=== PATIENT | male | born 1935 | race Caucasian/White ===

== ENCOUNTER 2018-02-04 12:48 | Inpatient (IN) ==
[2018-02-04 18:11] LABS: Apearance,Urine CLEAR (Clear); Bilirubin,Urine Negative (Negative); Blood, Urine Negative (Negative); Glucose,Urine (UA) Negative (Negative); Ketones,Urine Negative (Negative); Nitrite,Urine Negative (Negative); Protein,Urine Negative; RBC,Urine <1 /HPF (0-4); Squamous Epithelial Cell,Urine Occasional /HPF (0-10); Urine Color Yellow (Yellow); Urine Specific Gravity 1.011 (1.001-1.035); Urine Urobilinogen < 2.0 EU/DL (0.2-1.0); WBC,Urine <1 /HPF (0-6)
[2018-02-04 19:20] LABS: Hematocrit 28.5 VOL% (42.0-52.0); Hemoglobin 8.9 GM/DL (14.0-18.0)
[2018-02-05 04:03] LABS: Basophils % 0.8 % (0.0-0.8); Eosinophils # 0.1 10*3/uL (0.0-0.87); Eosinophils % 1.7 % (0.00-10.9); Hematocrit 25.6 VOL% (42.0-52.0); Hemoglobin 7.9 GM/DL (14.0-18.0); Immature Granulocytes % 0.4 %; Immature Granulocytes Absolute 0.02 #; Lymphocytes # 0.8 10*3/uL (1.4-4.0); Lymphocytes % 16.1 % (21.2-54.2); Mean Corpuscular HGB Conc 30.9 GM/DL (32-36); Mean Corpuscular Hemoglobin 26 PG (27-34); Mean Corpuscular Volume 84.2 FL (87-102); Monocytes # 0.6 10*3/uL (0.11-0.8); Monocytes % 11.7 % (1.7-12.7); Neutrophils # 3.6 10*3/uL (1.4-7.4); Neutrophils % 69.3 % (38.7-73.9); Platelet Count 149 T/CUMM (130-400); Red Blood Count 3.04 MC/CUMM (3.8-5.5); Red Cell Distribution Width 15.6 % (9.3-17.3); White Blood Count 5.2 T/CUMM (4-12)
[2018-02-05 04:33] LABS: Albumin 3.1 G/DL (3.4-5.0); Bilirubin,Total 0.7 MG/DL (0.2-1.0); Calcium 8.3 MG/DL (8.5-10.1); Osmolality,Calculated 292.8 MOS/KG (273-304); Potassium 4.2 MMOL/L (3.5-5.1); Total Protein 5.6 G/DL (6.4-8.3)
[2018-02-06 05:33] LABS: Basophils % 0.3 % (0.0-0.8); Eosinophils % 0.3 % (0.00-10.9); Hemoglobin 10.6 GM/DL (14.0-18.0); Immature Granulocytes % 0.5 %; Immature Granulocytes Absolute 0.06 #; Lymphocytes # 0.6 10*3/uL (1.4-4.0); Lymphocytes % 5.5 % (21.2-54.2); Mean Corpuscular HGB Conc 31.2 GM/DL (32-36); Mean Corpuscular Hemoglobin 26 PG (27-34); Mean Corpuscular Volume 84.6 FL (87-102); Mean Platelet Volume 11.9 FL (9.6-12.0); Monocytes # 0.6 10*3/uL (0.11-0.8); Monocytes % 5.5 % (1.7-12.7); Neutrophils # 10.2 10*3/uL (1.4-7.4); Neutrophils % 87.9 % (38.7-73.9); Platelet Count 155 T/CUMM (130-400); Red Cell Distribution Width 15.8 % (9.3-17.3); White Blood Count 11.6 T/CUMM (4-12)
[2018-02-06 05:42] LABS: Red Blood Count 4.02 MC/CUMM (3.8-5.5)
[2018-02-07 11:21] LABS: Basophils % 0.4 % (0.0-0.8); Eosinophils # 0.1 10*3/uL (0.0-0.87); Eosinophils % 0.9 % (0.00-10.9); Hematocrit 32.5 VOL% (42.0-52.0); Immature Granulocytes % 0.6 %; Immature Granulocytes Absolute 0.05 #; Lymphocytes # 0.7 10*3/uL (1.4-4.0); Lymphocytes % 9.3 % (21.2-54.2); Mean Corpuscular HGB Conc 30.8 GM/DL (32-36); Mean Corpuscular Hemoglobin 26 PG (27-34); Mean Corpuscular Volume 85.5 FL (87-102); Mean Platelet Volume 11.5 FL (9.6-12.0); Monocytes # 0.7 10*3/uL (0.11-0.8); Monocytes % 9.1 % (1.7-12.7); Neutrophils # 6.3 10*3/uL (1.4-7.4); Neutrophils % 79.7 % (38.7-73.9); Platelet Count 149 T/CUMM (130-400); Red Cell Distribution Width 15.9 % (9.3-17.3); White Blood Count 7.9 T/CUMM (4-12)
[2018-02-07 12:15] LABS: Albumin 3.1 G/DL (3.4-5.0); Bilirubin,Total 1.5 MG/DL (0.2-1.0); Calcium 8.6 MG/DL (8.5-10.1); Osmolality,Calculated 285.1 MOS/KG (273-304); Potassium 3.7 MMOL/L (3.5-5.1)
[2018-02-08 05:32] LABS: Basophils # 0.1 10*3/uL (0.0-0.2); Basophils % 0.7 % (0.0-0.8); Eosinophils # 0.1 10*3/uL (0.0-0.87); Eosinophils % 1.9 % (0.00-10.9); Hematocrit 33.8 VOL% (42.0-52.0); Immature Granulocytes % 0.4 %; Immature Granulocytes Absolute 0.03 #; Lymphocytes # 0.6 10*3/uL (1.4-4.0); Lymphocytes % 8.7 % (21.2-54.2); Mean Corpuscular HGB Conc 32.5 GM/DL (32-36); Mean Corpuscular Hemoglobin 27 PG (27-34); Mean Platelet Volume 11.9 FL (9.6-12.0); Monocytes # 0.8 10*3/uL (0.11-0.8); Monocytes % 10.9 % (1.7-12.7); Neutrophils # 5.6 10*3/uL (1.4-7.4); Neutrophils % 77.4 % (38.7-73.9); Platelet Count 175 T/CUMM (130-400); Red Blood Count 4.12 MC/CUMM (3.8-5.5); Red Cell Distribution Width 15.6 % (9.3-17.3); White Blood Count 7.3 T/CUMM (4-12)
[2018-02-08 05:36] LABS: INR 1.1; PT Patient Result 11.7 SECS
[2018-02-08 06:33] LABS: Calcium 9.1 MG/DL (8.5-10.1); Potassium 3.7 MMOL/L (3.5-5.1)
[2018-02-08 13:54] VITALS: BP 130/75
== END 2018-02-08 15:45 | disposition home or self-care (01) | DRG 378 ==
LOC: INTOOBSV 13:01 → N.2E 13:01
PROVIDERS: ADMIT Family Medicine; ATTEND Family Medicine

== ENCOUNTER 2019-08-05 10:00 | Inpatient (IN) ==
[2019-08-05] MEDS ORDERED: PANTOPRAZOLE 40 MG VIAL IV STA (10:31)
[2019-08-05 10:40] LABS: Basophils # 0.1 10*3/uL (0.0-0.2); Basophils % 0.9 % (0.0-0.8); Eosinophils # 0.1 10*3/uL (0.0-0.87); Eosinophils % 2.2 % (0.00-10.9); Hematocrit 25.5 VOL% (42.0-52.0); Hemoglobin 7.6 GM/DL (14.0-18.0); Immature Granulocytes % 0.3 %; Immature Granulocytes Absolute 0.02 #; Lymphocytes # 0.7 10*3/uL (1.4-4.0); Lymphocytes % 11.4 % (21.2-54.2); Mean Corpuscular HGB Conc 29.8 GM/DL (32-36); Mean Corpuscular Volume 81.5 FL (87-102); Mean Platelet Volume 10.8 FL (9.6-12.0); Monocytes % 9.2 % (1.7-12.7); Platelet Count 234 T/CUMM (130-400); Red Blood Count 3.13 MC/CUMM (3.8-5.5); Red Cell Distribution Width 14.9 % (9.3-17.3); White Blood Count 6.5 T/CUMM (4-12)
[2019-08-05 10:50] LABS: INR 1.3; PT Patient Result 14.4 SECS (9.6-12.2); Partial Thromboplastin Time 25.4 SECS (20.8-36.0)
[2019-08-05 11:03] LABS: Albumin 3.8 G/DL (3.4-5.0); Bilirubin,Total 1.5 MG/DL (0.2-1.0); Calcium 8.7 MG/DL (8.5-10.1)
[2019-08-05] MEDS ORDERED: LEVOFLOXACIN INJ 500 MG in PREMIX 1 EACH IV STA (11:29)
[2019-08-05] MEDS ORDERED: SODIUM CHLORIDE 0.9% 1,000 ML IV PRN (11:47)
[2019-08-05] MEDS ORDERED: ALBUTEROL 2.5 MG/3 ML NEB RESP TX PRN (11:50)
[2019-08-05] MEDS ORDERED: DEXTROSE 10% 250 ML BAG IV PRN (11:53)
[2019-08-05] MEDS ORDERED: GLUCAGON 1 MG VIAL IM PRN (11:53)
[2019-08-05] MEDS ORDERED: MORPHINE 4 MG/1 ML VIAL IV PRN (11:54)
[2019-08-05] MEDS ORDERED: ONDANSETRON 4 MG/2 ML VIAL IV PRN (11:54)
[2019-08-05] MEDS ORDERED: amLODIPine 5 MG TABLET PO PRN (11:56)
[2019-08-05] MEDS ORDERED: FUROSEMIDE 20 MG/2 ML VIAL IV ONE (12:00)
[2019-08-05] MEDS ORDERED: diphenhydrAMINE CAP 25 MG CAPSULE PO ONE (12:00)
[2019-08-05] MEDS ORDERED: ACETAMINOPHEN 325 MG TABLET PO ONE (12:00)
[2019-08-05 13:14] LABS: % Iron Saturation 11.1 % (18-50)
[2019-08-05] MEDS: ALBUTEROL/IPRATROPIUM 3 ML NEB RESP TX SCH ×2 (14:36→19:00)
[2019-08-05] MEDS: carvediloL 12.5 MG TABLET PO SCH (17:09)
[2019-08-05] MEDS: BENZONATATE 100 MG CAPSULE PO SCH ×2 (17:09→20:46)
[2019-08-05] MEDS: INSULIN REGULAR 100 UNIT/ML SUBCUT SCH ×2 (17:29→20:46)
[2019-08-05 17:42] LABS: Apearance,Urine CLEAR (Clear); Bilirubin,Urine Negative (Negative); Blood, Urine Negative (Negative); Glucose,Urine (UA) Negative (Negative); Hyaline Casts,Urine 3 /LPF (0-3); Ketones,Urine Negative (Negative); Mucus,Urine Occasional /LPF (Occasional); Nitrite,Urine Negative (Negative); Protein,Urine Negative; Squamous Epithelial Cell,Urine Occasional /HPF (0-10); Urine Color Straw (Yellow); Urine Specific Gravity 1.006 (1.001-1.035); Urine Urobilinogen < 2.0 EU/DL (0.2-1.0)
[2019-08-05] MEDS: SIMVASTATIN 20 MG TABLET PO SCH (20:46)
[2019-08-05] MEDS: MAGNESIUM OXIDE 400 MG TABLET PO SCH (20:46)
[2019-08-05] MEDS: GABAPENTIN 300 MG CAPSULE PO SCH (20:46)
[2019-08-06] MEDS: ALBUTEROL/IPRATROPIUM 3 ML NEB RESP TX SCH ×4 (00:58→19:06)
[2019-08-06 05:44] LABS: Basophils # 0.1 10*3/uL (0.0-0.2); Basophils % 0.7 % (0.0-0.8); Eosinophils # 0.1 10*3/uL (0.0-0.87); Eosinophils % 1.8 % (0.00-10.9); Hematocrit 30.8 VOL% (42.0-52.0); Immature Granulocytes % 0.4 %; Immature Granulocytes Absolute 0.03 #; Lymphocytes # 0.8 10*3/uL (1.4-4.0); Lymphocytes % 11.6 % (21.2-54.2); Mean Corpuscular HGB Conc 31.5 GM/DL (32-36); Mean Corpuscular Volume 81.3 FL (87-102); Mean Platelet Volume 10.9 FL (9.6-12.0); Monocytes % 9.8 % (1.7-12.7); Neutrophils % 75.7 % (38.7-73.9); Platelet Count 197 T/CUMM (130-400); Red Blood Count 3.79 MC/CUMM (3.8-5.5); Red Cell Distribution Width 15.2 % (9.3-17.3); White Blood Count 7.1 T/CUMM (4-12)
[2019-08-06 05:46] LABS: Hemoglobin 9.7 GM/DL (14.0-18.0)
[2019-08-06 05:55] LABS: Albumin 3.6 G/DL (3.4-5.0); Bilirubin,Total 2.5 MG/DL (0.2-1.0); Calcium 8.7 MG/DL (8.5-10.1); Osmolality,Calculated 284.3 MOS/KG (273-304); Total Protein 6.6 G/DL (6.4-8.3)
[2019-08-06 06:01] LABS: Risk Ratio 3.12; Thyroid Stimulating Hormone 3.94 uIU/ml (0.358-3.74); VLDL CHOLESTEROL 12.2 MG/DL
[2019-08-06] MEDS: INSULIN REGULAR 100 UNIT/ML SUBCUT SCH ×4 (07:56→21:09)
[2019-08-06] MEDS: POTASSIUM CHLORIDE 10 MEQ TABLET PO SCH (08:34)
[2019-08-06] MEDS: MAGNESIUM OXIDE 400 MG TABLET PO SCH ×2 (08:34→21:09)
[2019-08-06] MEDS: amLODIPine 10 MG TABLET PO SCH (08:34)
[2019-08-06] MEDS: BENZONATATE 100 MG CAPSULE PO SCH ×3 (08:34→21:09)
[2019-08-06] MEDS: carvediloL 12.5 MG TABLET PO SCH ×2 (08:35→16:48)
[2019-08-06] MEDS: cefTRIAXone 1,000 MG in SYRINGE 1 EACH IV SCH (08:35)
[2019-08-06] MEDS: FUROSEMIDE 20 MG TABLET PO SCH (08:35)
[2019-08-06] MEDS: GABAPENTIN 300 MG CAPSULE PO SCH ×2 (08:35→21:09)
[2019-08-06] MEDS: PANTOPRAZOLE 40 MG TABLET PO SCH (08:35)
[2019-08-06] MEDS: AZITHROMYCIN INJ 500 MG in SODIUM CHLORIDE 0.9% 250 ML IV SCH (08:39)
[2019-08-06] MEDS: SIMVASTATIN 20 MG TABLET PO SCH (21:10)
[2019-08-07] MEDS: ALBUTEROL/IPRATROPIUM 3 ML NEB RESP TX SCH ×2 (00:35→07:10)
[2019-08-07 05:58] LABS: Basophils # 0.1 10*3/uL (0.0-0.2); Basophils % 1.2 % (0.0-0.8); Eosinophils # 0.2 10*3/uL (0.0-0.87); Eosinophils % 2.8 % (0.00-10.9); Hematocrit 32.7 VOL% (42.0-52.0); Hemoglobin 10.1 GM/DL (14.0-18.0); Immature Granulocytes % 0.7 %; Immature Granulocytes Absolute 0.04 #; Lymphocytes # 0.8 10*3/uL (1.4-4.0); Lymphocytes % 13.9 % (21.2-54.2); Mean Corpuscular HGB Conc 30.9 GM/DL (32-36); Mean Corpuscular Volume 82.2 FL (87-102); Mean Platelet Volume 10.8 FL (9.6-12.0); Monocytes % 11.2 % (1.7-12.7); Neutrophils % 70.2 % (38.7-73.9); Platelet Count 212 T/CUMM (130-400); Red Blood Count 3.98 MC/CUMM (3.8-5.5); Red Cell Distribution Width 15.4 % (9.3-17.3); White Blood Count 6.1 T/CUMM (4-12)
[2019-08-07 06:33] LABS: Albumin 3.7 G/DL (3.4-5.0); Bilirubin,Total 1.9 MG/DL (0.2-1.0); Calcium 8.8 MG/DL (8.5-10.1); Osmolality,Calculated 292.6 MOS/KG (273-304); Total Protein 6.7 G/DL (6.4-8.3)
[2019-08-07] MEDS: INSULIN REGULAR 100 UNIT/ML SUBCUT SCH ×2 (07:47→12:36)
[2019-08-07] MEDS: POTASSIUM CHLORIDE 10 MEQ TABLET PO SCH (08:30)
[2019-08-07] MEDS: BENZONATATE 100 MG CAPSULE PO SCH (08:31)
[2019-08-07] MEDS: carvediloL 12.5 MG TABLET PO SCH (08:31)
[2019-08-07] MEDS: GABAPENTIN 300 MG CAPSULE PO SCH (08:31)
[2019-08-07] MEDS: amLODIPine 10 MG TABLET PO SCH (08:31)
[2019-08-07] MEDS: cefTRIAXone 1,000 MG in SYRINGE 1 EACH IV SCH (08:31)
[2019-08-07] MEDS: FUROSEMIDE 20 MG TABLET PO SCH (08:31)
[2019-08-07] MEDS: MAGNESIUM OXIDE 400 MG TABLET PO SCH (08:31)
[2019-08-07] MEDS: PANTOPRAZOLE 40 MG TABLET PO SCH (08:31)
[2019-08-07] MEDS: AZITHROMYCIN INJ 500 MG in SODIUM CHLORIDE 0.9% 250 ML IV SCH (08:37)
[2019-08-07 12:28] VITALS: BP 114/49
== END 2019-08-07 15:21 | disposition home or self-care (01) | DRG 813 ==
LOC: N.ED 10:00 → N.EDINP 11:54 → N.2E 12:10
PROVIDERS: ADMIT Internal Medicine Cardiovascular Disease; ATTEND Internal Medicine Cardiovascular Disease

== ENCOUNTER 2019-11-21 11:07 | Inpatient (IN) ==
[2019-11-21] MEDS ORDERED: ONDANSETRON 4 MG/2 ML VIAL IV STA (12:13)
[2019-11-21] MEDS ORDERED: HYDROmorphone 2 MG/1 ML VIAL IV STA ×3 (12:13→14:00)
[2019-11-21 12:33] LABS: Basophils # 0.1 10*3/uL (0.0-0.2); Basophils % 0.8 % (0.0-0.8); Eosinophils # 0.1 10*3/uL (0.0-0.87); Eosinophils % 1.6 % (0.00-10.9); Hematocrit 39.1 VOL% (42.0-52.0); Immature Granulocytes % 0.5 %; Immature Granulocytes Absolute 0.04 #; Lymphocytes # 0.8 10*3/uL (1.4-4.0); Lymphocytes % 11.2 % (21.2-54.2); Mean Corpuscular HGB Conc 30.7 GM/DL (32-36); Mean Corpuscular Volume 88.1 FL (87-102); Mean Platelet Volume 10.2 FL (9.6-12.0); Monocytes % 12.3 % (1.7-12.7); Neutrophils % 73.6 % (38.7-73.9); Platelet Count 230 T/CUMM (130-400); Red Blood Count 4.44 MC/CUMM (3.8-5.5); White Blood Count 7.3 T/CUMM (4-12)
[2019-11-21 12:53] LABS: Albumin 3.8 G/DL (3.4-5.0); Bilirubin,Total 0.9 MG/DL (0.2-1.0); Calcium 9.5 MG/DL (8.5-10.1); Osmolality,Calculated 282.5 MOS/KG (273-304); Total Protein 7.6 G/DL (6.4-8.3)
[2019-11-21 13:03] LABS: INR 1.2; PT Patient Result 12.4 SECS (9.8-11.9); Partial Thromboplastin Time 25.7 SECS (23.9-33.8)
[2019-11-21] MEDS ORDERED: hydrALAZINE 20 MG/1 ML VIAL IV PRN (13:06)
[2019-11-21] MEDS ORDERED: DOCUSATE SODIUM 100 MG CAPSULE PO PRN (13:06)
[2019-11-21] MEDS ORDERED: GLUCAGON 1 MG VIAL IM PRN (13:06)
[2019-11-21] MEDS ORDERED: DEXTROSE 50% 25 GM/50 ML VIAL IV PRN (13:06)
[2019-11-21] MEDS ORDERED: ACETAMINOPHEN 325 MG TABLET PO PRN (13:06)
[2019-11-21] MEDS ORDERED: ONDANSETRON 4 MG/2 ML VIAL IV PRN (13:06)
[2019-11-21] MEDS ORDERED: HYDROmorphone 2 MG/1 ML VIAL IV PRN (13:11)
[2019-11-21 13:41] LABS: Risk Ratio 2.5; Thyroid Stimulating Hormone 4.32 uIU/ml (0.358-3.74); VLDL CHOLESTEROL 18.2 MG/DL
[2019-11-21] MEDS ORDERED: MORPHINE 4 MG/1 ML VIAL IV PRN (14:17)
[2019-11-21] MEDS: INSULIN LISPRO 100 UNIT/ML SUBCUT SCH (16:08)
[2019-11-21] MEDS: LACTATED RINGERS 1,000 ML IV SCH (16:26)
[2019-11-21] MEDS ORDERED: ASPIRIN EC 81 MG TABLET PO SCH (21:00)
[2019-11-21] MEDS ORDERED: NABUMETONE 500 MG TABLET PO SCH (21:00)
[2019-11-21] MEDS: MORPHINE 4 MG/1 ML VIAL IV PRN (21:04)
[2019-11-21] MEDS: SERTRALINE 25 MG TABLET PO SCH (21:55)
[2019-11-21] MEDS: GABAPENTIN 300 MG CAPSULE PO SCH (21:55)
[2019-11-21] MEDS: carvediloL 12.5 MG TABLET PO SCH (21:55)
[2019-11-21] MEDS: LOSARTAN 25 MG TABLET PO SCH (21:56)
[2019-11-21 22:43] LABS: Apearance,Urine CLEAR (Clear); Bilirubin,Urine Negative (Negative); Blood, Urine Negative (Negative); Glucose,Urine (UA) 150 mg/dL (Negative); Hyaline Casts,Urine 5 /LPF (0-3); Ketones,Urine Negative (Negative); Mucus,Urine Occasional /LPF (Occasional); Nitrite,Urine Negative (Negative); Protein,Urine Negative; RBC,Urine 2 /HPF (0-4); Urine Color Yellow (Yellow); Urine Specific Gravity 1.012 (1.001-1.035); Urine Urobilinogen < 2.0 EU/DL (0.2-1.0); WBC,Urine 1 /HPF (0-6)
[2019-11-22] MEDS: INSULIN LISPRO 100 UNIT/ML SUBCUT SCH ×5 (00:59→21:20)
[2019-11-22] MEDS: SIMVASTATIN 20 MG TABLET PO SCH ×2 (01:00→21:07)
[2019-11-22] MEDS: LACTATED RINGERS 1,000 ML IV SCH ×3 (02:58→16:31)
[2019-11-22] MEDS: MORPHINE 4 MG/1 ML VIAL IV PRN (05:20)
[2019-11-22 05:52] LABS: Basophils % 0.7 % (0.0-0.8); Eosinophils # 0.1 10*3/uL (0.0-0.87); Eosinophils % 1.8 % (0.00-10.9); Hematocrit 33.6 VOL% (42.0-52.0); Hemoglobin 10.5 GM/DL (14.0-18.0); Immature Granulocytes % 0.3 %; Immature Granulocytes Absolute 0.02 #; Lymphocytes # 0.9 10*3/uL (1.4-4.0); Lymphocytes % 14.9 % (21.2-54.2); Mean Corpuscular HGB Conc 31.3 GM/DL (32-36); Mean Corpuscular Volume 86.8 FL (87-102); Mean Platelet Volume 10.4 FL (9.6-12.0); Monocytes % 14.1 % (1.7-12.7); Neutrophils % 68.2 % (38.7-73.9); Platelet Count 180 T/CUMM (130-400); Red Blood Count 3.87 MC/CUMM (3.8-5.5); Red Cell Distribution Width 16.7 % (9.3-17.3)
[2019-11-22] MEDS ORDERED: VANCOMYCIN INJ 1,000 MG in SODIUM CHLORIDE 0.9% 250 ML IV ONE (06:00)
[2019-11-22] MEDS ORDERED: ceFAZolin 1,000 MG in SYRINGE 1 EACH IV ONE (06:00)
[2019-11-22 06:07] LABS: Calcium 9.3 MG/DL (8.5-10.1); Osmolality,Calculated 275.8 MOS/KG (273-304)
[2019-11-22] MEDS ORDERED: TRANEXAMIC ACID 1,000 MG/10 ML VIAL ONE (07:56)
[2019-11-22] MEDS ORDERED: BACITRACIN OINT 0.9 GM PACK TOP ONE (07:56)
[2019-11-22] MEDS ORDERED: propofoL 200 MG/20 ML VIAL IV ONE (09:18)
[2019-11-22] MEDS ORDERED: ROPIVACAINE 0.5% 30 ML VIAL ONE (09:18)
[2019-11-22] MEDS ORDERED: DEXMEDETOMIDINE 200 MCG/2 ML VIAL ONE (09:19)
[2019-11-22] MEDS ORDERED: ePHEDrine 50 MG/ML AMP ONE (09:19)
[2019-11-22] MEDS ORDERED: GLYCOPYRROLATE 0.4 MG/2 ML VIAL ONE (09:19)
[2019-11-22] MEDS ORDERED: LACTATED RINGERS 1,000 ML IV ONE (09:19)
[2019-11-22] MEDS ORDERED: ROCURONIUM 100 MG/10 ML VIAL IV ONE (09:19)
[2019-11-22] MEDS ORDERED: NEOSTIGMINE 10 MG/10 ML VIAL ONE (09:19)
[2019-11-22] MEDS ORDERED: SEVOFLURANE 1 UNIT/15 MINUTE INH ONE (09:19)
[2019-11-22] MEDS ORDERED: ETOMIDATE 40 MG/20 ML VIAL IV ONE (09:19)
[2019-11-22] MEDS ORDERED: ONDANSETRON 4 MG/2 ML VIAL ONE (09:19)
[2019-11-22] MEDS ORDERED: fentaNYL 100 MCG/2 ML VIAL ONE (09:19)
[2019-11-22 09:28] LABS: Apearance,Urine Slightly Hazy (Clear); Bacteria,Urine Occasional /HPF (Few); Bilirubin,Urine Negative (Negative); Blood, Urine Small mg/dL (Negative); Glucose,Urine (UA) 50 mg/dL (Negative); Ketones,Urine Negative (Negative); Mucus,Urine Occasional /LPF (Occasional); Nitrite,Urine Negative (Negative); Protein,Urine Negative; RBC,Urine 14 /HPF (0-4); Squamous Epithelial Cell,Urine Occasional /HPF (0-10); Urine Color Yellow (Yellow); Urine Specific Gravity 1.015 (1.001-1.035); Urine Urobilinogen < 2.0 EU/DL (0.2-1.0); WBC,Urine 1 /HPF (0-6)
[2019-11-22] MEDS: carvediloL 12.5 MG TABLET PO SCH ×2 (10:02→21:06)
[2019-11-22] MEDS: amLODIPine 10 MG TABLET PO SCH (10:03)
[2019-11-22] MEDS: PANTOPRAZOLE 40 MG TABLET PO SCH (10:03)
[2019-11-22] MEDS: GABAPENTIN 300 MG CAPSULE PO SCH ×2 (10:04→21:06)
[2019-11-22] MEDS: FUROSEMIDE 20 MG TABLET PO SCH (10:04)
[2019-11-22] MEDS: LOSARTAN 25 MG TABLET PO SCH ×2 (10:05→21:14)
[2019-11-22] MEDS: POTASSIUM CHLORIDE 20 MEQ TABLET PO SCH (10:05)
[2019-11-22] MEDS: ceFAZolin 1,000 MG in SYRINGE 1 EACH IV SCH ×2 (11:57→21:10)
[2019-11-22] MEDS: SERTRALINE 25 MG TABLET PO SCH (21:06)
[2019-11-22] MEDS: APIXABAN 2.5 MG TABLET PO SCH (21:06)
[2019-11-23] MEDS: LACTATED RINGERS 1,000 ML IV SCH (02:14)
[2019-11-23] MEDS: MAGNESIUM HYDROXIDE SUSP 30 ML UDCUP PO PRN (04:45)
[2019-11-23 06:28] LABS: Basophils % 0.4 % (0.0-0.8); Eosinophils # 0.1 10*3/uL (0.0-0.87); Eosinophils % 1.5 % (0.00-10.9); Hematocrit 30.4 VOL% (42.0-52.0); Hemoglobin 9.3 GM/DL (14.0-18.0); Immature Granulocytes % 0.5 %; Immature Granulocytes Absolute 0.04 #; Lymphocytes # 0.5 10*3/uL (1.4-4.0); Lymphocytes % 5.7 % (21.2-54.2); Mean Corpuscular HGB Conc 30.6 GM/DL (32-36); Mean Corpuscular Volume 87.9 FL (87-102); Mean Platelet Volume 10.8 FL (9.6-12.0); Monocytes % 9.9 % (1.7-12.7); Platelet Count 152 T/CUMM (130-400); Red Blood Count 3.46 MC/CUMM (3.8-5.5); Red Cell Distribution Width 16.7 % (9.3-17.3)
[2019-11-23 06:57] LABS: Calcium 8.8 MG/DL (8.5-10.1); Osmolality,Calculated 276.7 MOS/KG (273-304)
[2019-11-23] MEDS: PANTOPRAZOLE 40 MG TABLET PO SCH (09:00)
[2019-11-23] MEDS: GABAPENTIN 300 MG CAPSULE PO SCH ×2 (09:00→20:25)
[2019-11-23] MEDS: amLODIPine 10 MG TABLET PO SCH (09:01)
[2019-11-23] MEDS: FERROUS SULFATE 325 MG TABLET PO SCH (09:01)
[2019-11-23] MEDS: carvediloL 12.5 MG TABLET PO SCH ×2 (09:01→20:26)
[2019-11-23] MEDS: APIXABAN 2.5 MG TABLET PO SCH ×2 (09:01→20:25)
[2019-11-23] MEDS: FUROSEMIDE 20 MG TABLET PO SCH (09:02)
[2019-11-23] MEDS: POTASSIUM CHLORIDE 20 MEQ TABLET PO SCH (09:02)
[2019-11-23] MEDS: LOSARTAN 25 MG TABLET PO SCH ×2 (09:02→20:25)
[2019-11-23] MEDS: INSULIN LISPRO 100 UNIT/ML SUBCUT SCH ×4 (10:37→22:24)
[2019-11-23] MEDS: SIMVASTATIN 20 MG TABLET PO SCH (20:25)
[2019-11-23] MEDS: SERTRALINE 25 MG TABLET PO SCH (20:25)
[2019-11-24 05:45] LABS: Basophils % 0.2 % (0.0-0.8); Eosinophils # 0.1 10*3/uL (0.0-0.87); Eosinophils % 1.6 % (0.00-10.9); Hematocrit 28.3 VOL% (42.0-52.0); Hemoglobin 8.9 GM/DL (14.0-18.0); Immature Granulocytes % 0.8 %; Immature Granulocytes Absolute 0.05 #; Lymphocytes # 0.4 10*3/uL (1.4-4.0); Lymphocytes % 5.6 % (21.2-54.2); Mean Corpuscular HGB Conc 31.4 GM/DL (32-36); Mean Corpuscular Volume 87.6 FL (87-102); Mean Platelet Volume 10.9 FL (9.6-12.0); Neutrophils % 81.8 % (38.7-73.9); Platelet Count 122 T/CUMM (130-400); Red Blood Count 3.23 MC/CUMM (3.8-5.5); Red Cell Distribution Width 16.3 % (9.3-17.3); White Blood Count 6.2 T/CUMM (4-12)
[2019-11-24 06:04] LABS: Band Neutrophils 2 % (0-10); Calcium 8.8 MG/DL (8.5-10.1); Hypochromasia 1+; Lymphocytes 3 % (20-55); Microcytosis Slight; Osmolality,Calculated 278.1 MOS/KG (273-304); Ovalocytes Slight; Platelet Estimate Normal; Segmented Neutrophils 90 % (50-85); Total Cells Counted 100
[2019-11-24] MEDS: FUROSEMIDE 20 MG TABLET PO SCH (09:03)
[2019-11-24] MEDS: GABAPENTIN 300 MG CAPSULE PO SCH ×2 (09:03→20:55)
[2019-11-24] MEDS: LOSARTAN 25 MG TABLET PO SCH ×2 (09:03→20:56)
[2019-11-24] MEDS: PANTOPRAZOLE 40 MG TABLET PO SCH (09:03)
[2019-11-24] MEDS: amLODIPine 10 MG TABLET PO SCH (09:03)
[2019-11-24] MEDS: carvediloL 12.5 MG TABLET PO SCH ×2 (09:03→20:55)
[2019-11-24] MEDS: INSULIN LISPRO 100 UNIT/ML SUBCUT SCH ×4 (09:04→22:05)
[2019-11-24] MEDS: POTASSIUM CHLORIDE 20 MEQ TABLET PO SCH (09:04)
[2019-11-24] MEDS: APIXABAN 2.5 MG TABLET PO SCH ×2 (09:45→20:56)
[2019-11-24] MEDS: SERTRALINE 25 MG TABLET PO SCH (20:55)
[2019-11-24] MEDS: SIMVASTATIN 20 MG TABLET PO SCH (20:56)
[2019-11-25] MEDS: MAGNESIUM HYDROXIDE SUSP 30 ML UDCUP PO PRN (04:51)
[2019-11-25] MEDS: PANTOPRAZOLE 40 MG TABLET PO SCH (09:19)
[2019-11-25] MEDS: FERROUS SULFATE 325 MG TABLET PO SCH (09:19)
[2019-11-25] MEDS: POTASSIUM CHLORIDE 20 MEQ TABLET PO SCH (09:19)
[2019-11-25] MEDS: GABAPENTIN 300 MG CAPSULE PO SCH (09:19)
[2019-11-25] MEDS: LOSARTAN 25 MG TABLET PO SCH (09:19)
[2019-11-25] MEDS: carvediloL 12.5 MG TABLET PO SCH (09:19)
[2019-11-25] MEDS: FUROSEMIDE 20 MG TABLET PO SCH (09:19)
[2019-11-25] MEDS: amLODIPine 10 MG TABLET PO SCH (09:19)
[2019-11-25] MEDS: INSULIN LISPRO 100 UNIT/ML SUBCUT SCH ×2 (09:20→12:02)
[2019-11-25] MEDS: APIXABAN 2.5 MG TABLET PO SCH (09:20)
[2019-11-25] MEDS: SODIUM PHOSPHATE ENEMA 133 ML BOTTLE RECTAL PRN ×2 (09:20→11:13)
[2019-11-25 12:56] VITALS: BP 130/38
== END 2019-11-25 13:36 | disposition home health service (06) | DRG 470 ==
LOC: N.ED 11:07 → N.EDINP 12:44 → N.3E 14:07
PROVIDERS: ADMIT Internal Medicine Geriatric Medicine; ATTEND Internal Medicine Geriatric Medicine